=== PATIENT | female | born 1945 | race Caucasian/White ===

== ENCOUNTER 2019-04-05 11:59 | Outpatient (CLI) | payer MEDICARE, OTHER ==
[~2019-04-05 11:59] MED LIST: ACET325T26 PO; ASPI-515 PO; HYDR-3237 PO; LISI-170 PO; METO25TA35 PO; ONDA4TAB13 SL; POLY17PO5 PO; TRAM50TA2 PO
== END 2019-04-05 23:59 | disposition home or self-care (01) ==
LOC: CFH 11:59
PROVIDERS: ATTEND Family Medicine
DX: M80.861A Other osteoporosis with current pathological fracture, right lower leg, initial encounter for fracture (principal); S42.221D 2-part displaced fracture of surgical neck of right humerus, subsequent encounter for fracture with routine healing; S82.201D Unspecified fracture of shaft of right tibia, subsequent encounter for closed fracture with routine healing; S82.401D Unspecified fracture of shaft of right fibula, subsequent encounter for closed fracture with routine healing; Z78.0 Asymptomatic menopausal state
CPT/HCPCS: 77080